=== PATIENT | male | born 1995 | race Caucasian/White ===

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

== ENCOUNTER 2017-11-06 00:35 | Emergency (ER) | payer BC ==
[2017-11-06] MEDS: Proparacaine 0.5% Ophth Soln 15 ML Bottle ONE (01:01)
[2017-11-06] MEDS: Fluorescein 1 MG Ophth Strip EYELF ONE (01:01)
[2017-11-06] MEDS: Take Home: Gentamicin 0.3% Ophth Soln 5 ML, 1 Bottle Pack EYEBOTH ONE (01:13)
[2017-11-06] MEDS: Diclofenac Sodium 0.1% Ophth Soln 5 ML Bottle EYELF ONE (01:13)
--- NOTE | 2017-11-06 05:39 | EDM.PDOC ---
ED HPI GENERAL MEDICAL PROBLEM - General Chief Complaint: Eye Problems Stated Complaint: left eye pain Time Seen by Provider: 11/06/17 00:58 Source of Information: Reports: Patient History Limitations: Reports: No Limitations - History of Present Illness INITIAL COMMENTS - FREE TEXT/NARRATIVE: Pt. presents to ER with complaints of L eye discomfort. States that he was wearing contacts at onset of discomfort. He states that is vision is preserved. He states that if felt like he had an eyelash in his eye. When her removed his contacts, the discomfort was much worse. Denies any obvious trauma to the eye/face. Onset Date: 11/06/17 Onset Time: 05:35 Location: Reports: Face Quality: Reports: Burning, Sharp Severity: Severe Left Eye Pain Score (Numeric/FACES): 9 - Related Data Allergies Allergy/AdvReac Type Severity Reaction Status Date / Time Sulfa (Sulfonamide Allergy Other Verified 11/06/17 00:36 Antibiotics) Home Meds: Home Meds . [No Known Home Meds] 11/06/17 [History] Past Medical History Dermatologic History: Reports: Other (See Below) Other Dermatologic History: acne - Past Surgical History HEENT Surgical History: Reports: Myringotomy w Tube(s), Tonsillectomy Social & Family History - Tobacco Use Smoking Status *Q: Never Smoker ED ROS GENERAL - Review of Systems Review Of Systems: See Below Constitutional: Reports: No Symptoms HEENT: Reports: Eye Pain ED EXAM GENERAL W FULL EYE - Physical Exam Exam: See Below Exam Limited By: No Limitations General Appearance: Alert, WD/WN, No Apparent Distress Eye Exam: Bilateral Eye: EOMI, Normal Fundi, PERRL, Other (mild conjunctivitis noted. florsescein exam of the eye reveals corneal abrasion to inferior 1/3 of eye, extending across sclera from edge of iris) Course - Vital Signs Last Recorded V/S: Last Vital Signs Temp 36.4 C 11/06/17 00:37 Pulse 72 11/06/17 00:37 Resp 16 11/06/17 00:37 BP 148/66 H 11/06/17 00:37 Pulse Ox 98 11/06/17 00:37 - Orders/Labs/Meds Meds: Medications Discontinued Medications Generic Name Dose Route Start Last Admin Trade Name Freq PRN Reason Stop Dose Admin Diclofenac Sodium 1 ml 11/06/17 08:00 Voltaren 0.1% Ophth Soln EYELF QID DAVE Diclofenac Sodium 1 ml 11/06/17 01:09 11/06/17 01:13 Voltaren 0.1% Ophth Soln EYELF 11/06/17 01:10 2 drop ONETIME ONE Administration Fluorescein Sodium 1 mg 11/06/17 00:56 11/06/17 01:01 Ful-Carmen EYELF 11/06/17 00:57 1 mg ONETIME ONE Administration Gentamicin Sulfate 1 packet 11/06/17 01:10 11/06/17 01:13 Take Home: Gentamicin 0.3% Ophth Soln, 1 Rae EYEBOTH 11/06/17 01:11 1 packet ONETIME ONE Administration Proparacaine HCl Confirm 11/06/17 01:01 11/06/17 01:01 Proparacaine 0.5% Ophth Soln Administered 11/06/17 01:02 2 drop Dose Administration 15 ml .ROUTE .STK-MED ONE Departure - Departure Time of Disposition: 01:00 Disposition: Home, Self-Care 01 Clinical Impression: Corneal abrasion - Discharge Information Instructions: Corneal Abrasion, [id number] Referrals: PCP,Unobtain [Primary Care Provider] - Forms: ED Department Discharge Additional Instructions: Gentamycin drops 1 drop to left eye 5 times per day for 7 days Voltaren drops 1 drop to L eye 4 times per day for 5 days Protect eye from wind and dust for next several days. Return to ER if you have any acute vision loss or change. - Assessment/Plan Plan: Gentamycin drops 1 drop to left eye 5 times per day for 7 days Voltaren drops 1 drop to L eye 4 times per day for 5 days Protect eye from wind and dust for next several days. Return to ER if you have any acute vision loss or change.
[2017-11-06] MEDS ORDERED: Diclofenac Sodium 0.1% Ophth Soln 5 ML Bottle EYELF SCH (08:00)
== END 2017-11-06 01:20 | disposition home or self-care (01) ==
LOC: VM.ED 00:35
DX: S05.02XA Injury of conjunctiva and corneal abrasion without foreign body, left eye, initial encounter (principal); Z88.2 Allergy status to sulfonamides; X58.XXXA Exposure to other specified factors, initial encounter
CPT/HCPCS: 99283; A9270-GY